=== PATIENT | male | born 1940 | race Caucasian/White ===

== ENCOUNTER 2018-01-25 12:20 | Outpatient (REF) | payer OTHER, SELFPAY ==
[2018-01-25 21:04] LABS: COMMENT (LAB VIEW ONLY) 194.73 mg/dL; Microalb ug/mg Crea 97.1 ug/mg Cr
== END 2018-01-25 12:21 ==
LOC: NCHCN 12:20
PROVIDERS: PCP Internal Medicine; Visit Provider Internal Medicine
DX: E11.9 Type 2 diabetes mellitus without complications (principal)
CPT/HCPCS: 82043; 82570

== ENCOUNTER 2019-01-27 09:02 | Outpatient (REF) | payer OTHER, SELFPAY ==
[2019-01-27 21:40] LABS: Hemoglobin A1C 6.6 % (4.5-6.2)
[2019-01-27 21:47] LABS: Anion Gap 9.9 mmol/L (3-11); BUN 9 mg/dL (7-18); CO2 26.1 mmol/L (21.0-32.0); CREATININE 1.05 mg/dL (0.70-1.30); Calcium 10.2 mg/dL (8.5-10.1); Calculated LDL 55 mg/dL; Chloride 108 mmol/L (98-107); Cholesterol 114 mg/dL (50-200); Glucose 141 mg/dL (70-100); HDL Cholesterol 49 mg/dL (40-60); Potassium 3.9 mmol/L (3.5-5.1); Sodium 144 mmol/L (136-145); Triglyceride 54 mg/dL (30-150)
[2019-01-27 22:29] LABS: COMMENT (LAB VIEW ONLY) 246.87 mg/dL; Microalb ug/mg Crea 11.5 ug/mg Cr
== END 2019-01-27 09:22 ==
LOC: LBN 09:02
PROVIDERS: PCP Internal Medicine; Visit Provider Internal Medicine
DX: E11.9 Type 2 diabetes mellitus without complications (principal); I10 Essential (primary) hypertension; I25.810 Atherosclerosis of coronary artery bypass graft(s) without angina pectoris
CPT/HCPCS: 80048; 80061; 83721; 82043; 82570; 83036

== ENCOUNTER 2019-04-30 17:41 | Outpatient (REF) | payer OTHER, SELFPAY ==
[2019-04-30 21:28] LABS: HCT 42.2 % (40.0-50.0); HGB 14.1 g/dL (13.5-17.5); Mean Corp. HGB Concentration 33.4 g/dL (32.0-36.0); Mean Corpuscular Hemoglobin 29.2 pg (27.0-33.0); Mean Corpuscular Volume 87.4 fL (80-95); Mean Platelet Volume 10.1 fL (8.0-11.0); Platelet Count 393 x1000/uL (130-400); RBC 4.83 m/cumm (4.50-6.00); RBC Distribution Width 12.8 % (11.8-14.1)
[2019-04-30 21:52] LABS: ALT 22 U/L (16-63); AST 11 U/L (15-37); Alkaline Phosphatase 240 U/L (46-116); Bilirubin, Direct 0.12 mg/dL (0.00-0.20); Bilirubin, Total 0.4 mg/dL (0.2-1.0); TSH (W/Ref FT4) 2.39 uIU/mL (0.36-3.74); Total Protein 7.4 g/dL (6.4-8.2)
[2019-05-02 13:04] LABS: IgA 167 mg/dL (85-499); Interpretation SEE COMMENTS; Tissue Transglutaminase IgA <1.2 U/mL (<4.0)
== END 2019-04-30 18:01 ==
LOC: NCHCN 17:41
PROVIDERS: PCP Internal Medicine; Visit Provider Internal Medicine
DX: R19.7 Diarrhea, unspecified (principal)
CPT/HCPCS: 80076; 82784; 83516; 85027; 84443

== ENCOUNTER 2019-05-05 12:26 | Outpatient (REF) | payer OTHER, SELFPAY ==
[2019-05-05 22:12] LABS: Anion Gap 8.6 mmol/L (3-11); BUN 14 mg/dL (7-18); C-Reactive Protein 0.18 mg/dL (0.0-0.3); CO2 28.4 mmol/L (21.0-32.0); Calcium 10.8 mg/dL (8.5-10.1); Chloride 105 mmol/L (98-107); Glucose 182 mg/dL (70-100); Potassium 4.1 mmol/L (3.5-5.1); Sodium 142 mmol/L (136-145)
[2019-05-05 22:19] LABS: GGT 28 U/L (15-85)
[2019-05-05 22:47] LABS: Vitamin D 25 Total 8.3 ng/ml (30-100)
[2019-05-07 16:13] LABS: Parathyroid Hormone,Intact 209 pg/mL (19-88)
== END 2019-05-05 12:46 ==
LOC: NCHCN 12:26
PROVIDERS: PCP Internal Medicine; Visit Provider Internal Medicine
DX: E21.0 Primary hyperparathyroidism (principal); R19.7 Diarrhea, unspecified; R74.8 Abnormal levels of other serum enzymes; E83.52 Hypercalcemia; Z00.01 Encounter for general adult medical examination with abnormal findings
CPT/HCPCS: 80048; 82306; 82977; 83970; 86140

== ENCOUNTER 2019-12-30 21:23 | Outpatient (REF) | payer OTHER, SELFPAY ==
[2019-12-30 22:00] LABS: Calcium 10.9 mg/dL (8.5-10.1)
[2020-01-01 04:38] LABS: Vitamin D 25 Total 16.7 ng/ml (30-100)
[2020-01-01 09:26] LABS: Parathyroid Hormone,Intact 166 pg/mL (19-88)
== END 2019-12-30 21:43 ==
LOC: NCHCN 21:23
PROVIDERS: PCP Internal Medicine; Visit Provider Internal Medicine
DX: E55.9 Vitamin D deficiency, unspecified (principal); E21.0 Primary hyperparathyroidism; E11.9 Type 2 diabetes mellitus without complications
CPT/HCPCS: 82306; 82310; 83036; 83970

== ENCOUNTER 2020-01-02 12:28 | Outpatient (REF) | payer OTHER, SELFPAY ==
[2020-01-05 11:21] LABS: PSA, Screening 7.4 ng/mL (0.0-6.5)
== END 2020-01-02 12:48 ==
LOC: NCHCN 12:28
PROVIDERS: PCP Internal Medicine; Visit Provider Internal Medicine
DX: Z12.5 Encounter for screening for malignant neoplasm of prostate (principal); R97.20 Elevated prostate specific antigen [PSA]
CPT/HCPCS: 84153

== ENCOUNTER 2020-04-01 22:41 | Outpatient (REF) | payer OTHER, SELFPAY ==
[2020-04-01 21:42] LABS: COMMENT (LAB VIEW ONLY) 151.81 mg/dL; Microalb ug/mg Crea 12.1 ug/mg Cr
== END 2020-04-01 23:01 ==
LOC: NCHCN 22:41
PROVIDERS: PCP Internal Medicine; Visit Provider Internal Medicine
DX: K92.2 Gastrointestinal hemorrhage, unspecified (principal); E55.9 Vitamin D deficiency, unspecified; E11.9 Type 2 diabetes mellitus without complications
CPT/HCPCS: 82043; 82570

== ENCOUNTER 2020-04-05 17:44 | Outpatient (REF) | payer OTHER, SELFPAY ==
[2020-04-05 20:55] LABS: HCT 29.9 % (40.0-50.0); HGB 9.5 g/dL (13.5-17.5); MCH 29.3 pg (27.0-33.0); MCHC 31.8 % (32.0-36.0); MCV 92.3 fL (80-95); MPV 10.4 fL (8.0-11.0); Platelet Count 419 10^3/uL (130-400); RBC 3.24 10^6/uL (4.36-5.78); RDW 14.6 % (11.8-14.1); RDW-SD 48.4 fL; WBC 8.66 10^3/uL (4.4-10.8)
[2020-04-05 21:26] LABS: Vitamin D 25 Total 24.5 ng/ml (30-100)
== END 2020-04-05 18:04 ==
LOC: NCHCN 17:44
PROVIDERS: PCP Internal Medicine; Visit Provider Internal Medicine
DX: E11.9 Type 2 diabetes mellitus without complications (principal); E55.9 Vitamin D deficiency, unspecified; K92.2 Gastrointestinal hemorrhage, unspecified
CPT/HCPCS: 82306; 85027

== ENCOUNTER 2020-09-17 16:43 | Outpatient (REF) | payer OTHER, SELFPAY ==
[2020-09-17 21:29] LABS: Abs Immature Grans 0.04 10^3/uL (0.0-0.06); Absolute Basophil Count 0.07 10^3/uL (0.0-0.2); Absolute Eosinophil Count 0.14 10^3/uL (0.0-0.7); Absolute Lymphocyte Count 2.08 10^3/uL (1.2-3.4); Absolute Monocyte Count 0.62 10^3/uL (0.1-0.8); Absolute Neutrophil Count 5.92 10^3/uL (1.2-6.7); Basophils % 0.8; Eosinophils % 1.6; HCT 42.4 % (40.0-50.0); HGB 13.7 g/dL (13.5-17.5); Immature Grans % 0.5; Lymphocytes % 23.4; MCH 28.1 pg (27.0-33.0); MCHC 32.3 % (32.0-36.0); MCV 86.9 fL (80-95); Neutrophils % 66.7; Nucleated RBC 0 %; Platelet Count 389 10^3/uL (130-400); RBC 4.88 10^6/uL (4.36-5.78); RDW 13.3 % (11.8-14.1); RDW-SD 41.8 fL; WBC 8.87 10^3/uL (4.4-10.8)
[2020-09-17 21:59] LABS: Hemoglobin A1C 6.5 % (<5.7)
== END 2020-09-17 16:44 | disposition home or self-care (01) ==
LOC: NCHCN 16:43
PROVIDERS: PCP Internal Medicine; Visit Provider Internal Medicine
DX: D64.9 Anemia, unspecified (principal); E11.9 Type 2 diabetes mellitus without complications
CPT/HCPCS: 83036; 85025

== ENCOUNTER 2021-01-19 19:48 | Outpatient (REF) | payer OTHER, SELFPAY ==
[2021-01-19 22:10] LABS: ALT 18 U/L (16-63); AST 11 U/L (15-37); Alkaline Phosphatase 218 U/L (46-116); Anion Gap 9.8 mmol/L (3-11); BUN 18 mg/dL (7-18); Bilirubin, Total 0.4 mg/dL (0.2-1.0); CO2 27.2 mmol/L (21.0-32.0); CREATININE 1.2 mg/dL (0.70-1.30); Chloride 105 mmol/L (98-107); Glucose 231 mg/dL (74-106); Potassium 4.5 mmol/L (3.5-5.1); Sodium 142 mmol/L (136-145); Total Protein 7.1 g/dL (6.4-8.2)
[2021-01-20 01:44] LABS: Vitamin D 25 Total 25.8 ng/mL (30-100)
[2021-01-21 09:22] LABS: Parathyroid Hormone,Intact 191 pg/mL (19-88)
== END 2021-01-19 19:49 | disposition home or self-care (01) ==
LOC: NCHCN 19:48
PROVIDERS: PCP Internal Medicine; Visit Provider Internal Medicine
DX: E21.0 Primary hyperparathyroidism (principal); E83.52 Hypercalcemia
CPT/HCPCS: 80053; 82306; 83970

== ENCOUNTER 2021-04-21 18:59 | Outpatient (REF) | payer MEDICARE, SELFPAY ==
[2021-04-21 22:13] LABS: COMMENT (LAB VIEW ONLY) 108.77 mg/dL
[2021-04-21 22:14] LABS: Microalb ug/mg Crea 94.5 ug/mg Cr
== END 2021-04-21 19:00 | disposition home or self-care (01) ==
LOC: NCHCN 18:59
PROVIDERS: PCP Internal Medicine; Visit Provider Internal Medicine
DX: E11.9 Type 2 diabetes mellitus without complications (principal); I10 Essential (primary) hypertension
CPT/HCPCS: 82043; 82570

== ENCOUNTER 2021-07-14 21:23 | Outpatient (REF) | payer MEDICARE, SELFPAY ==
[2021-07-14 21:17] LABS: Anion Gap 10.1 mmol/L (3-11); BUN 16 mg/dL (7-18); CO2 22.9 mmol/L (21.0-32.0); CREATININE 1.1 mg/dL (0.70-1.30); Calcium 10.3 mg/dL (8.5-10.1); Chloride 105 mmol/L (98-107); Glucose 152 mg/dL (74-106); Potassium 4.3 mmol/L (3.5-5.1); Sodium 138 mmol/L (136-145)
[2021-07-14 21:25] LABS: Hemoglobin A1C 7.3 % (<5.7)
[2021-07-14 21:45] LABS: Vitamin D 25 Total 41.8 ng/mL (30-100)
== END 2021-07-14 21:24 | disposition home or self-care (01) ==
LOC: NCHCN 21:23
PROVIDERS: PCP Internal Medicine; Visit Provider Internal Medicine
DX: I10 Essential (primary) hypertension (principal); E11.9 Type 2 diabetes mellitus without complications; E55.9 Vitamin D deficiency, unspecified
CPT/HCPCS: 80048; 82306; 83036

== ENCOUNTER 2021-08-19 19:05 | Outpatient (REF) | payer MEDICARE, SELFPAY ==
--- OUTSIDE RECORDS SUMMARY | 2021-08-19 19:08 | XMS_ITS | CCD ---
:1940 Author Care Team Providers Name Role Phone Nereida ASKEW Attending Physician Unavailable Vital Signs Unknown or Not Available. Allergies Allergy Code Allergy Type Reaction Status No Known Drug Allergies 0 No known drug allergies Active Procedures Unknown or Not Available. History of Immunizations Unknown or Not Available. Problems Problem Code Start Date Resolved Date Status Dementia 56805619 Active Diabetes 2 43977733 Active Benign prostatic 351080544 Active hypertrophy Nondisplaced [id number] Active intertrochanteric fracture of right femur, initial encounter for closed fracture Results Unknown or Not Available. Active Medications Medication Code Dose Units Frequency Route Modification Start Date/Time Acetaminophen 294515 2 TABLET THREE TIMES ORAL 2020 500MG Oral A DAY 11:31 Tablet Prescription Detail TAKE 2 TABLET ORAL THREE PAYTON ES A DAY X 7 DAYS THEN CONTINUE NEEDED FOR DISCOMFORT Enoxaparin 120569 40 MILLIGRAMS DAILY SUBCUTANEOUS 07/07 Sodium 11:30 40MG/0.4ML Injection Solution Prescription Detail INJECT 40 MILLIGRAMS SUBCUTA NEOUS DAILY X 20 DAYS traMADol HCl 305218 1 TABLET NEEDED ORAL 50MG Oral THREE TIMES 11:27 Tablet A DAY Prescription Detail TAKE 1 TABLET ORAL NEEDED THREE TIMES A DAY FOR PAIN QUEtiapine 25MG 240247 1 TABLET NEEDED AT ORAL Oral Tablet BEDTIME 11:26 Prescription Detail TAKE 1 TABLET ORAL NEEDED AT BEDTIM FOR AGGITATION OR INSOMNIA Tamsulosin HCl 705279 0.4 MILLIGRAMS DAILY ORAL 2020 0.4MG Oral 11:26 Capsule Prescription Detail TAKE 0.4 MILLIGRAMS ORAL ROXANNE LY Aspirin 81MG 750051 81 MILLIGRAMS EVERY ORAL 03/27/20 20 Oral Tablet, EVENING 08:29 Enteric Coated Prescription Detail TAKE 81 MILLIGRAMS ORAL EVER Y EVENING Atorvastatin 511159 40 MILLIGRAMS EVERY ORAL 03/27/20 20 Calcium 40MG Oral EVENING 08:29 Tablet Prescription Detail TAKE 40 MILLIGRAMS ORAL EVER Y EVENING Donepezil HCl 150329 10 MILLIGRAMS DAILY ORAL 020 10MG Oral 08:29 Tablet Prescription Detail TAKE 10 MILLIGRAMS ORAL PRANEETH Y Finasteride 5MG 327834 5 MILLIGRAMS DAILY ORAL 03/27 Oral Tablet 08:29 Prescription Detail TAKE 5 MILLIGRAMS ORAL DAILY Folic Acid 010167 1 MILLIGRAMS DAILY ORAL 03/27/2020 1MG Oral 08:29 Tablet Prescription Detail TAKE 1 MILLIGRAMS ORAL DAILY glipiZIDE 10MG 962661 10 MILLIGRAMS DAILY ORAL 2019 Oral Tablet 08:29 Prescription Detail TAKE 10 MILLIGRAMS ORAL PRANEETH Y Sertraline 50MG 367010 50 MILLIGRAMS DAILY ORAL 03/27 Oral Tablet 08:29 Prescription Detail TAKE 50 MILLIGRAMS ORAL PRANEETH Y Medications Administered During Visit Unknown or Not Available. Encounters Encounter Diagnosis Diagnosis Code Start Date Pathological fracture 043934580 05/17/2021 Social History Smoking Status Code Start Date End Date Former smoker [id number] 06/25/1986 Patient Decision Aids Unknown or Not Available. Discharge Instructions You were admitted to [facility] on 05/17/2021 13:55 with a principal diagnosis of Pathological fracture, hip, unspecified, subsequent encounter for fracture with routine healing You were discharged from [facility] on 05/17/2021 13:55 Should you have any questions prior to d ischarge, please contact a member of your healthcare team. If you have left the spital and have any questions, please contact your primary care physician. Chief Complaint and Reason For Visit Chief Complaint Date of Onset HYPERPARATHYROIDISM Function Status Unknown or Not Available. Plan of Care Unknown or Not Available. Referral/Transition of Care Unknown or Not Available.
[2021-08-19 21:55] LABS: ALT 17 U/L (16-63); AST 8 U/L (15-37); Albumin 3.7 g/dL (3.4-5.0); Alkaline Phosphatase 166 U/L (46-116); BUN 14 mg/dL (7-18); Bilirubin, Total 0.4 mg/dL (0.2-1.0); CREATININE 1.2 mg/dL (0.70-1.30); Calcium 10.3 mg/dL (8.5-10.1); Chloride 102 mmol/L (98-107); Glucose 317 mg/dL (74-106); Magnesium 1.5 mg/dL (1.8-2.4); Potassium 4.2 mmol/L (3.5-5.1); Sodium 139 mmol/L (136-145); Total Protein 6.7 g/dL (6.4-8.2)
[2021-08-19 22:16] LABS: PHOSPHORUS 2.7 mg/dL (2.6-4.7)
[2021-08-22 01:58] LABS: Vitamin D 25 Total 39.9 ng/mL (30-100)
== END 2021-08-19 19:06 | disposition home or self-care (01) ==
LOC: LBN 19:05
PROVIDERS: PCP Internal Medicine; Visit Provider Internal Medicine Endocrinology, Diabetes & Metabolism
DX: E21.0 Primary hyperparathyroidism (principal)
CPT/HCPCS: 80053; 82306; 83735; 83970; 84100

== ENCOUNTER 2022-02-01 21:10 | Outpatient (REF) | payer MEDICARE, SELFPAY ==
[2022-02-01 21:57] LABS: ALT 17 U/L (16-63); AST 10 U/L (15-37); Albumin 4.1 g/dL (3.4-5.0); Alkaline Phosphatase 173 U/L (46-116); Anion Gap 11.8 mmol/L (3-11); BUN 24 mg/dL (7-18); Bilirubin, Total 0.5 mg/dL (0.2-1.0); CO2 25.2 mmol/L (21.0-32.0); CREATININE 1.5 mg/dL (0.70-1.30); Chloride 104 mmol/L (98-107); Estimated GFR 45.03 (mL/min/1.73m2); Glucose 242 mg/dL (74-106); PHOSPHORUS 2.2 mg/dL (2.6-4.7); Potassium 4.3 mmol/L (3.5-5.1); Sodium 141 mmol/L (136-145); Total Protein 7.3 g/dL (6.4-8.2)
[2022-02-02 04:55] LABS: Vitamin D 25 Total 37.4 ng/mL (30-100)
[2022-02-02 23:22] LABS: Parathyroid Hormone,Intact 150 pg/mL (19-88)
== END 2022-02-01 21:11 | disposition home or self-care (01) ==
LOC: NCHCN 21:10
PROVIDERS: PCP Internal Medicine; Visit Provider Nurse Practitioner Family
DX: Z91.81 History of falling (principal); E83.52 Hypercalcemia; E11.9 Type 2 diabetes mellitus without complications; G30.9 Alzheimer's disease, unspecified; F02.80 Dementia in other diseases classified elsewhere, unspecified severity, without behavioral disturbance, psychotic disturbance, mood disturbance, and anxiety
CPT/HCPCS: 80053; 82306; 83735; 83970; 84100

== ENCOUNTER 2022-05-02 16:33 | Outpatient (REF) | payer MEDICARE, SELFPAY ==
[2022-05-02 21:53] LABS: Anion Gap 10.4 mmol/L (3-11); BUN 15 mg/dL (7-18); CO2 25.6 mmol/L (21.0-32.0); CREATININE 1.3 mg/dL (0.70-1.30); Calcium 10.3 mg/dL (8.5-10.1); Chloride 106 mmol/L (98-107); Estimated GFR 55.53 (mL/min/1.73m2); Glucose 168 mg/dL (74-106); PHOSPHORUS 2.9 mg/dL (2.6-4.7); Potassium 4.6 mmol/L (3.5-5.1); Sodium 142 mmol/L (136-145)
== END 2022-05-02 16:34 | disposition home or self-care (01) ==
LOC: NCHCN 16:33
PROVIDERS: PCP Internal Medicine; Visit Provider Nurse Practitioner Family
DX: E11.9 Type 2 diabetes mellitus without complications (principal); E21.0 Primary hyperparathyroidism
CPT/HCPCS: 80048; 82043; 82570; 83970; 84100

== ENCOUNTER 2022-07-20 16:38 | Outpatient (REF) | payer MEDICARE, SELFPAY | END 2022-07-20 16:39 | disposition home or self-care (01) | LOC: NCHCN 16:38 | PROVIDERS: PCP Internal Medicine; Visit Provider Family Medicine | DX: N30.00 Acute cystitis without hematuria (principal); R41.3 Other amnesia; R82.998 Other abnormal findings in urine | CPT/HCPCS: 87086 ==

== ENCOUNTER 2023-01-22 17:51 | Outpatient (REF) | payer MEDICARE, SELFPAY ==
[2023-01-22 21:33] LABS: BUN 21 mg/dL (7-18); CREATININE 1.3 mg/dL (0.70-1.30); Chloride 108 mmol/L (98-107); Estimated GFR 55.19 (mL/min/1.73m2); Glucose 133 mg/dL (74-106); Potassium 4.7 mmol/L (3.5-5.1); Sodium 142 mmol/L (136-145)
[2023-01-22 21:54] LABS: Bilirubin Small (Negative); Blood Large (Negative); Clarity Cloudy (Clear); Glucose Negative (Negative); Ketones Trace mg/dL (Negative); Leukocyte Esterase Small (Negative); Nitrite Positive (Negative); Specific Gravity >= 1.030 (1.005-1.025); Urobilinogen 0.2 mg/dL (Up to 0.2); pH 5.5 (5-8)
[2023-01-22 22:12] LABS: WBC >50 HPF (0-5)
[2023-01-22 22:13] LABS: C & S Indicated? C&S Done As Ordered
[2023-01-23 14:35] LABS: Vitamin D 25 Total 19.8 ng/mL (30-100)
== END 2023-01-22 17:52 | disposition home or self-care (01) ==
LOC: NCHCN 17:51
PROVIDERS: PCP Internal Medicine; Visit Provider Internal Medicine
DX: E55.9 Vitamin D deficiency, unspecified (principal); R30.0 Dysuria; N20.0 Calculus of kidney
CPT/HCPCS: 80048; 82306; 81003; 81015; 87086

== ENCOUNTER 2023-04-23 17:46 | Outpatient (REF) | payer MEDICARE, SELFPAY | END 2023-04-23 17:47 | disposition home or self-care (01) | LOC: NCHCN 17:46 | PROVIDERS: PCP Internal Medicine; Visit Provider Internal Medicine | DX: R32 Unspecified urinary incontinence (principal); E11.9 Type 2 diabetes mellitus without complications | CPT/HCPCS: 82043; 82570; 87086 ==

== ENCOUNTER 2023-08-27 15:17 | Outpatient (REF) | payer MEDICARE, SELFPAY ==
[2023-08-27 21:55] LABS: Hemoglobin A1C 6.2 % (<5.7)
[2023-08-27 22:21] LABS: Vitamin D 25 Total 27.9 ng/mL (30-100)
[2023-08-27 22:58] LABS: ALT 26 U/L (16-63); AST 24 U/L (15-37); Albumin 3.6 g/dL (3.4-5.0); Alkaline Phosphatase 180 U/L (46-116); Anion Gap 9.9 mmol/L (3-11); BUN 19 mg/dL (7-18); Bilirubin, Total 0.5 mg/dL (0.2-1.0); CO2 28.1 mmol/L (21.0-32.0); CREATININE 1.3 mg/dL (0.70-1.30); Calcium 11.5 mg/dL (8.5-10.1); Chloride 103 mmol/L (98-107); Estimated GFR 55.19 (mL/min/1.73m2); Glucose 118 mg/dL (74-106); Potassium 4.9 mmol/L (3.5-5.1); Sodium 141 mmol/L (136-145); Total Protein 6.9 g/dL (6.4-8.2); Vitamin B12 409 pg/mL (193-986)
[2023-08-28 20:36] LABS: Parathyroid Hormone,Intact 126 pg/mL (19-88)
== END 2023-08-27 15:18 | disposition home or self-care (01) ==
LOC: NCHCN 15:17
PROVIDERS: PCP Internal Medicine; Visit Provider Internal Medicine
DX: E11.9 Type 2 diabetes mellitus without complications (principal); E21.0 Primary hyperparathyroidism
CPT/HCPCS: 80053; 82306; 82607; 83036; 83970